=== PATIENT | male | born 1970 | race Caucasian/White ===

== ENCOUNTER → 2017-02-24 | Outpatient (CLI) | payer OTHER, MEDICAID ==
[2016-06-27 10:55] VITALS: BP 149/95
--- NOTE | 2017-02-24 11:46 | RAD ---
HISTORY: Nontraumatic left shoulder pain and numbness Study: Left shoulder three view Comparison: None Findings: The appearance of the clavicle and AC joint are unremarkable. The glenohumeral articulation is norm al in its appearance. No acute cortical disruption or dislocation can be identified. The visualize d portions of the scapula are unremarkable. In addition, the visualized portions of the left hemith orax appear normal. IMPRESSION: 1. Negative exam. Reported By:
--- NOTE | 2017-02-24 11:48 | RAD ---
HISTORY: Neck pain, radiculopathy Study: Cervical spine five view Comparison: February 25, 2016 Findings: The patient is status post C3-4, C4-5, C5-6, C6-7 anterior fusion with hardware and disc spacers pre sent the alignment is normal. The alignment is stable in flexion and extension. The vertebral bodies are of average height. The C2-3 disc space is preserved. The posterior elements are intact. Diffuse bilateral facet degenerative joint disease is present. IMPRESSION: Postsurgical changes as above Normal alignment stable in flexion and extension Facet degenerative joint disease Reported By:
--- NOTE | 2017-02-25 13:14 | MRI ---
HISTORY: Cervicalgia, radiculopathy Study: MRI cervical spine without con Comparison: April 01, 2016 Technique: Multiplanar multisequence MRI of the cervical spine was obtained utilizing standard depar tmental protocol. Findings: The patient is status post C3 through C7 anterior fusion with hardware present . There is disk space r at C3-4. Alignment of the cervical spine is maintained. No abnormal signal characteristics of the bone marrow can be identified. No evidence for fracture or significant bone or edema can be seen. The surrounding soft tissues are unremarkable. The cervical spinal cord is normal in size and conf iguration and without foci of abnormal signal. C2 -- C3: No evidence for compressive disc disease. The neural foramina are patent. C3 -- C4: Status post fusion mild spondylitic foraminal narrowing is present on the right and to a l kenrick extent on the left. C4 -- C5: Status post fusion. There is spondylitic foraminal narrowing bilaterally. No canal stenosi s is present. C5 -- C6: Status post fusion. No significant canal stenosis is present. Spondylitic foraminal narrow ing is present bilaterally. C6 -- C7: Status post fusion no significant canal stenosis is present peer spondylitic foraminal johnny rowing is present bilaterally right greater than left C7 -- T1: No evidence for compressive disc disease. The neural foramina are patent. IMPRESSION: As above Reported By:
--- NOTE | 2017-02-25 16:21 | CT ---
STUDY: CT OF THE CERVICAL SPINE HISTORY: Cervicalgia. Radiculopathy. Technique: Multiple axial images of the cervical spine were obtained from the skull base to the thor acic inlet without administration of IV contrast. Sagittal and coronal reformats were performed and reviewed. Automated exposure control (AEC) was utilized to adjust the MA and/or kV. Comparison: March 27, 2016. Findings: There are extensive postsurgical changes status post multilevel discectomy with placement of interbo dy cage and anterior plate screw fixation from C3 to C7. There is no evidence of acute fracture or subluxation. Facet alignment is within normal limits bilaterally. The spinous processes are intact. There is no significant prevertebral soft tissue swelling. The lateral masses of C1, and the C1/C2 r elationship are normal. The odontoid process is intact. The occipital condyles and their relationshi p with C1 are normal. Note is made of emphysematous changes in the right lung apex. IMPRESSION: 1. No evidence of acute cervical spine fracture or subluxation. 2. Postsurgical change status post multilevel discectomy with fusion and plate and screw fixation fr om C3-C7. Reported By:
== END | disposition home or self-care (01) ==
LOC: RAD 10:01
PROVIDERS: ATTEND Neurological Surgery
DX: M54.2 Cervicalgia (principal); M54.12 Radiculopathy, cervical region; M25.512 Pain in left shoulder; Z98.890 Other specified postprocedural states; M47.892 Other spondylosis, cervical region; Z98.1 Arthrodesis status
CPT/HCPCS: 72050; 72125; 72141; 73030

== ENCOUNTER 2017-03-06 20:44 | Emergency (ER) | payer OTHER, MEDICAID ==
[2017-03-06 20:58] VITALS: BP 154/80; BMI 26.2
[2017-03-06 22:53] LABS: BILIRUBIN,URINE NEGATIVE (NEGATIVE); BLOOD/HEMOGLOBIN,URINE 5+ (NEGATIVE); GLUCOSE, URINE 2+ (NEGATIVE); KETONES,URINE NEGATIVE (NEGATIVE); LEUKOCYTE ESTERASE ,URINE NEGATIVE (NEGATIVE); NITRITES,URINE NEGATIVE (NEGATIVE); PROTEIN,URINE NEGATIVE (NEGATIVE); UROBILINOGEN,URINE NORMAL (NORMAL)
--- NOTE | 2017-03-06 23:04 | DR.GENAD ---
HPI - PCP Primary Care Physician: - Complaint/Symptoms Chief Complaint:: PT STATERS, "i'M HAVING PAIN IN MY SIDE. I'VE BEEN HURTING FOR A WEEK AND HAVING BLOOD IN MY URINE." Self Treatment fo Chief Complaint: Pt states, "I took a hot shower. And I weent and bought a six pack." - Nurses notes reviewed Nurses Notes Review: Yes - Source History Provided: Patient - Mode of Arrival Mode of Arrival: Ambulatory - Timing Onset of Chief Complaint: 02/26/17 PMH - PMH Past Medical History: Yes Past Medical History: GERD, Kidney Stones Past Surgical History: Yes Surgical History: Ortho Surgery Past Surgical History Comment: shoulder, neck surgery - Family History History of Family Medical Conditions: Yes Family Medical History: Cancer, Hypertension Family Medical History Comment: CVA - Social History Does patient currently use any type of tobacco product: Yes Have you used tobacco products in the last 12 months: Yes Type of Tobacco Use: Cigarettes Alcohol Use: Rarely Do you use any recreational Drugs:: No Lives With: Spouse Lives Where: Home - infectious screening In the last 2 months have you had wt loss of >10#?: NO Have you had fever, night sweats or hemotysis?: No Have you traveled outside the country in the last 6 months?: No Isolation: Standard PE - Vital Signs Vitals: Temperature 97.9 F Pulse Rate 98 Respiratory Rate 18 Blood Pressure 154/80 O2 Sat by Pulse Oximetry 99 ROR - Labs Reviewed Laboratory: Specimen Type Clean catch urine 03/06/17 22:00 Urine Color Yellow (YELLOW) 03/06/17 22:00 Urine Appearance Slightly hazy (CLEAR) 03/06/17 22:00 Urine pH 6.0 (5.0 - 8.0) 03/06/17 22:00 Ur Specific [place] 1.010 (1.000-1.030) 03/06/17 22:00 Urine Protein Negative (NEGATIVE) 03/06/17 22:00 Urine Glucose (UA) 2+ (NEGATIVE) 03/06/17 22:00 Urine Ketones Negative (NEGATIVE) 03/06/17 22:00 Urine Occult Blood 5+ (NEGATIVE) 03/06/17 22:00 Urine Nitrite Negative (NEGATIVE) 03/06/17 22:00 Urine Bilirubin Negative (NEGATIVE) 03/06/17 22:00 Urine Urobilinogen Normal (NORMAL) 03/06/17 22:00 Ur Leukocyte Esterase Negative (NEGATIVE) 03/06/17 22:00 Urine RBC 80-100 /HPF (NEGATIVE) 03/06/17 22:00 Urine WBC 0-3 /HPF (NEGATIVE) 03/06/17 22:00 Ur Squamous Epith Cells Rare /HPF (NEGATIVE) 03/06/17 22:00 Urine Bacteria Negative /HPF (NEGATIVE) 03/06/17 22:00 Ur Culture Indicated? No/not indicated 03/06/17 22:00 - Discharge Plan Disposition: AGAINST MEDICAL ADVICE Condition: Stable - Follow ups/Referrals Follow ups/Referrals: NFD,None [Primary Care Provider] - 3 days - Instructions
[2017-03-06 23:12] LABS: APPEARANCE,URINE SLIGHTLY HAZY (CLEAR); BACTERIA,URINE NEGATIVE /HPF (NEGATIVE); COLOR,URINE YELLOW (YELLOW); RBC,URINE 80-100 /HPF (NEGATIVE); SQUAMOUS EPITHELIAL CELL,UR RARE /HPF (NEGATIVE)
== END 2017-03-06 23:11 | disposition left against medical advice (07) ==
LOC: ER 20:44
DX: R10.84 Generalized abdominal pain (principal)
CPT/HCPCS: 81001; 99281; 99282

== ENCOUNTER 2017-05-20 20:10 | Inpatient (IN) | payer OTHER, MEDICAID ==
[2017-05-20 20:18] VITALS: BMI 26.3
[2017-05-20] MEDS ORDERED: NS 1000 ML 1,000 ML ONE ×3 (20:22→22:17)
[2017-05-20] MEDS ORDERED: NS 1000 ML 1,000 ML IV ONE ×3 (20:23→22:24)
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
[2017-05-20 20:43] LABS: BASOPHILS # (AUTO) 0.1 X10^3/uL (0.0-0.1); EOSINOPHILS # (AUTO) 0.2 x10^3/uL (0.0-0.2); EOSINOPHILS % (AUTO) 2.3 % (0.9-2.9); HEMATOCRIT 38.1 % (42.0-54.0); HEMOGLOBIN 13.1 g/dL (13.5-18.0); LYMPHOCYTES # (AUTO) 2.4 X10^3/uL (1.3-2.9); MEAN CORPUSCULAR HEMOGLOBIN 29.7 pg (27.0-34.0); MEAN CORPUSCULAR HGB CONC 34.3 g/dL (33.0-35.0); MEAN CORPUSCULAR VOLUME 86.6 fL (80.0-100.0); MEAN PLATELET VOLUME 9.1 fL (7.4-11.0); MONOCYTES # (AUTO) 0.8 x10^3/uL (0.3-0.8); MONOCYTES % (AUTO) 10.7 % (0.0-13.0); NEUTROPHILS # (AUTO) 3.7 x10^3/uL (2.2-4.8); PLATELET COUNT 342 X10^3/uL (150.0-450.0); RED CELL DISTRIBUTION WIDTH 14.9 % (11.6-16.5)
[2017-05-20 20:51] LABS: ALANINE AMINOTRANSFERASE 43 Units/L (12-78); ALBUMIN 4.3 g/dL (3.4-5.0); ALKALINE PHOSPHATASE 60 Units/L (46-116); ASPARTATE AMINO TRANSFERASE 39 Units/L (15-37); BLOOD UREA NITROGEN 55 mg/dL (7-18); CALCIUM 9.7 mg/dL (8.5-10.1); CARBON DIOXIDE 18.5 mmol/L (21-32); CHLORIDE 100 mmol/L (98-107); COR NA(FOR HYPERGLY) 136 mmol/L (136-145); CREATININE 8.49 mg/dL (0.70-1.30); SODIUM 135 mmol/L (136-145); TOTAL PROTEIN 8.5 g/dL (6.4-8.2); eGFR BLACK RACES 9 (>60); eGFR NON BLACK RACES 7 (>60)
--- NOTE | 2017-05-20 21:17 | RAD ---
EXAM: Chest X-ray INDICATION: Low blood pressure COMPARISION: No prior TECHNIQUE: AP, single view FINDINGS: The lungs are clear in the lung volumes are within normal limits. No pleural effusion or pneumothorax . The cardiac silhouette and mediastinum are normal. The regional skeleton is intact. IMPRESSION: Normal Chest X-Ray Reported By:
[2017-05-20 23:18] LABS: BILIRUBIN,URINE 1+ (NEGATIVE); BLOOD/HEMOGLOBIN,URINE 4+ (NEGATIVE); GLUCOSE, URINE NEGATIVE (NEGATIVE); KETONES,URINE NEGATIVE (NEGATIVE); LEUKOCYTE ESTERASE ,URINE 1+ (NEGATIVE); NITRITES,URINE NEGATIVE (NEGATIVE); PROTEIN,URINE 3+ (NEGATIVE); UROBILINOGEN,URINE NORMAL (NORMAL)
[2017-05-20 23:23] LABS: CALCIUM 8.1 mg/dL (8.5-10.1); CARBON DIOXIDE 21.5 mmol/L (21-32); CREATININE 7.38 mg/dL (0.70-1.30)
[2017-05-20 23:25] LABS: APPEARANCE,URINE CLEAR (CLEAR); COLOR,URINE YELLOW (YELLOW); RBC,URINE 0-3 /HPF (NEGATIVE)
[2017-05-20 23:26] LABS: BACTERIA,URINE 1+ /HPF (NEGATIVE); HYALINE CASTS, URINE MANY /LPF (NEGATIVE); SQUAMOUS EPITHELIAL CELL,UR RARE /HPF (NEGATIVE)
[2017-05-20 23:27] LABS: OTHER CRYSTALS,URINE MODERATE /HPF (NEGATIVE)
[2017-05-21] MEDS: NS 1000 ML 1,000 ML IV SCH ×5 (01:04→23:33)
[2017-05-21 05:43] LABS: BASOPHILS % (AUTO) 0.7 % (0.2-1.0); EOSINOPHILS # (AUTO) 0.2 x10^3/uL (0.0-0.2); HEMATOCRIT 35.1 % (42.0-54.0); HEMOGLOBIN 11.7 g/dL (13.5-18.0); LYMPHOCYTES # (AUTO) 2.6 X10^3/uL (1.3-2.9); LYMPHOCYTES % (AUTO) 42.9 % (21.0-51.0); MEAN CORPUSCULAR HEMOGLOBIN 29.6 pg (27.0-34.0); MEAN CORPUSCULAR HGB CONC 33.4 g/dL (33.0-35.0); MEAN CORPUSCULAR VOLUME 88.6 fL (80.0-100.0); MEAN PLATELET VOLUME 9.1 fL (7.4-11.0); MONOCYTES # (AUTO) 0.7 x10^3/uL (0.3-0.8); MONOCYTES % (AUTO) 10.9 % (0.0-13.0); NEUTROPHILS # (AUTO) 2.6 x10^3/uL (2.2-4.8); NEUTROPHILS % (AUTO) 42.5 % (42.0-75.0); PLATELET COUNT 237 X10^3/uL (150.0-450.0); RED BLOOD COUNT 3.97 X10^6/uL (4.7-6.0); RED CELL DISTRIBUTION WIDTH 14.9 % (11.6-16.5)
[2017-05-21 05:56] LABS: ALANINE AMINOTRANSFERASE 33 Units/L (12-78); ALBUMIN 3.2 g/dL (3.4-5.0); ALKALINE PHOSPHATASE 45 Units/L (46-116); ASPARTATE AMINO TRANSFERASE 33 Units/L (15-37); BLOOD UREA NITROGEN 50 mg/dL (7-18); CALCIUM 8.1 mg/dL (8.5-10.1); CARBON DIOXIDE 18.7 mmol/L (21-32); CHLORIDE 108 mmol/L (98-107); COR CA(FOR HYPOALB) 8.7 mg/dL (8.5-10.1); CREATININE 6.67 mg/dL (0.70-1.30); SODIUM 139 mmol/L (136-145); TOTAL PROTEIN 6.6 g/dL (6.4-8.2); eGFR BLACK RACES 11 (>60); eGFR NON BLACK RACES 9 (>60)
[2017-05-21] MEDS ORDERED: PATIENT'S HOME MEDICATION (Lisinopril [Lisinopril] 20 MG) PO SCH (09:00)
[2017-05-21] MEDS ORDERED: PATIENT'S HOME MEDICATION (Amlodipine Besylate [Amlodipine Besylate] 10 MG) PO SCH (09:00)
[2017-05-21] MEDS ORDERED: ZESTRIL TAB 20 MG ONE (09:24)
[2017-05-21] MEDS: NORVASC TAB 10 MG PO SCH (09:26)
[2017-05-21] MEDS: ZESTRIL TAB 20 MG PO SCH (09:26)
[2017-05-21] MEDS ORDERED: NS 1000 ML 2,000 ML IV ONE (11:48)
[2017-05-21] MEDS ORDERED: ULTRAM PO PRN (14:34)
[2017-05-21] MEDS: NORCO 10/325 TAB PO PRN ×2 (15:06→21:15)
[2017-05-21] MEDS: PEPCID TAB 20 MG PO SCH ×2 (16:26→21:10)
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
[2017-05-22] MEDS: NS 1000 ML 1,000 ML IV SCH ×3 (03:52→16:58)
[2017-05-22] MEDS: NORCO 10/325 TAB PO PRN ×3 (03:55→20:21)
[2017-05-22 05:26] LABS: EOSINOPHILS # (AUTO) 0.3 x10^3/uL (0.0-0.2); EOSINOPHILS % (AUTO) 5.6 % (0.9-2.9); HEMATOCRIT 31.2 % (42.0-54.0); HEMOGLOBIN 10.4 g/dL (13.5-18.0); LYMPHOCYTES # (AUTO) 2.5 X10^3/uL (1.3-2.9); LYMPHOCYTES % (AUTO) 50.6 % (21.0-51.0); MEAN CORPUSCULAR HEMOGLOBIN 29.5 pg (27.0-34.0); MEAN CORPUSCULAR HGB CONC 33.3 g/dL (33.0-35.0); MEAN CORPUSCULAR VOLUME 88.5 fL (80.0-100.0); MEAN PLATELET VOLUME 9.1 fL (7.4-11.0); MONOCYTES # (AUTO) 0.4 x10^3/uL (0.3-0.8); MONOCYTES % (AUTO) 8.5 % (0.0-13.0); NEUTROPHILS # (AUTO) 1.7 x10^3/uL (2.2-4.8); NEUTROPHILS % (AUTO) 34.3 % (42.0-75.0); PLATELET COUNT 230 X10^3/uL (150.0-450.0); RED BLOOD COUNT 3.52 X10^6/uL (4.7-6.0); RED CELL DISTRIBUTION WIDTH 14.7 % (11.6-16.5)
[2017-05-22 05:29] LABS: ALANINE AMINOTRANSFERASE 30 Units/L (12-78); ALBUMIN 2.8 g/dL (3.4-5.0); ALKALINE PHOSPHATASE 45 Units/L (46-116); ASPARTATE AMINO TRANSFERASE 24 Units/L (15-37); BLOOD UREA NITROGEN 26 mg/dL (7-18); CALCIUM 7.5 mg/dL (8.5-10.1); CARBON DIOXIDE 17.4 mmol/L (21-32); CHLORIDE 114 mmol/L (98-107); COR CA(FOR HYPOALB) 8.5 mg/dL (8.5-10.1); CREATINE KINASE 206 Units/L (39-308); CREATININE 2.08 mg/dL (0.70-1.30); SODIUM 143 mmol/L (136-145); TOTAL PROTEIN 5.7 g/dL (6.4-8.2); eGFR BLACK RACES 44 (>60); eGFR NON BLACK RACES 36 (>60)
[2017-05-22] MEDS ORDERED: ZESTRIL TAB 20 MG ONE (09:12)
[2017-05-22] MEDS: ZESTRIL TAB 20 MG PO SCH (09:19)
[2017-05-22] MEDS: PEPCID TAB 20 MG PO SCH (09:19)
[2017-05-22] MEDS: NORVASC TAB 10 MG PO SCH (09:19)
[2017-05-23] MEDS: NS 1000 ML 1,000 ML IV SCH ×3 (01:54→08:52)
[2017-05-23 04:28] LABS: BASOPHILS # (AUTO) 0.1 X10^3/uL (0.0-0.1); EOSINOPHILS # (AUTO) 0.3 x10^3/uL (0.0-0.2); EOSINOPHILS % (AUTO) 5.4 % (0.9-2.9); HEMATOCRIT 31.2 % (42.0-54.0); HEMOGLOBIN 10.6 g/dL (13.5-18.0); LYMPHOCYTES # (AUTO) 2.4 X10^3/uL (1.3-2.9); MEAN CORPUSCULAR HEMOGLOBIN 29.5 pg (27.0-34.0); MEAN CORPUSCULAR HGB CONC 33.8 g/dL (33.0-35.0); MEAN CORPUSCULAR VOLUME 87.2 fL (80.0-100.0); MONOCYTES # (AUTO) 0.4 x10^3/uL (0.3-0.8); MONOCYTES % (AUTO) 7.2 % (0.0-13.0); NEUTROPHILS # (AUTO) 2.2 x10^3/uL (2.2-4.8); NEUTROPHILS % (AUTO) 41.4 % (42.0-75.0); PLATELET COUNT 240 X10^3/uL (150.0-450.0); RED BLOOD COUNT 3.58 X10^6/uL (4.7-6.0); RED CELL DISTRIBUTION WIDTH 14.3 % (11.6-16.5); WHITE BLOOD COUNT 5.3 X10^3/uL (3.6-10.0)
[2017-05-23 04:32] LABS: ALANINE AMINOTRANSFERASE 26 Units/L (12-78); ALBUMIN 2.7 g/dL (3.4-5.0); ALKALINE PHOSPHATASE 41 Units/L (46-116); ASPARTATE AMINO TRANSFERASE 25 Units/L (15-37); BLOOD UREA NITROGEN 14 mg/dL (7-18); CALCIUM 7.3 mg/dL (8.5-10.1); CARBON DIOXIDE 21.4 mmol/L (21-32); CHLORIDE 113 mmol/L (98-107); COR CA(FOR HYPOALB) 8.3 mg/dL (8.5-10.1); CREATINE KINASE 148 Units/L (39-308); CREATININE 1.45 mg/dL (0.70-1.30); SODIUM 143 mmol/L (136-145); TOTAL PROTEIN 5.7 g/dL (6.4-8.2); eGFR BLACK RACES > 60 (>60); eGFR NON BLACK RACES 55 (>60)
[2017-05-23] MEDS: NORCO 10/325 TAB PO PRN ×2 (06:56→08:51)
[2017-05-23] MEDS ORDERED: ZESTRIL TAB 20 MG ONE (07:54)
[2017-05-23 08:51] VITALS: BP 166/83
[2017-05-23] MEDS: NORVASC TAB 10 MG PO SCH (08:51)
[2017-05-23] MEDS: ZESTRIL TAB 20 MG PO SCH (08:52)
[2017-05-23] MEDS ORDERED: PEPCID TAB 20 MG PO SCH (09:00)
--- NOTE | 2017-05-23 23:39 | PCM.PROG ---
Progress Note - Progress Note for Day of Date: 05/22/17 - Subjective Subjective: WAS ADMITTED FOR PRERENAL AZOTEMIA AND DEHYDRATION. HE IS ALERT AND ORIENTED, LYING IN BED ON MORNING ROUNDS. HE IS NOTED WITH COMPLAINTS OF WEAKNESS. HE REPORTS FEELING SOME BETTER THAN YESTERDAY. ON EXAMINATION, LUNGS ARE NOTED CLEAR TO AUSCULTATION. ABDOMEN IS SOFT, ROUND, AND NON TENDER. VITALS SIGNS THIS MORNING ARE 98.2-30-10-99-134/75. CBC, CMP, AND CK WERE OBTAINED. ABNORMAL LAB VALUES INCLUDE THE FOLLOWING: RBC 3.52, HGB 10.4, HCT 31.2, CHLORIDE 114, CARBON DIOXIDE 17.4, BUN 26, CREATININE 2.08, CALCIUM 7.5, TOTAL BILIRUBIN 0.10, ALK PHOS 45, CREATINE KINASE 206, TOTAL PROTEIN 5.7, ALBUMIN 2.8. WE WILL CONTINUE WITH CURRENT PLAN OF CARE AND CONTINUE HYDRATING PATIENT. WE WILL RECHECK CBC, CMP, AND CK IN THE MORNING AND CONTINUE TO MONITOR PATIENT. WE PLAN TO DISCHARGE TOMORROW IF KIDNEY FUNCTION HAS RETURNED TO NORMAL AND PATIENT IS IN STABLE CONDITION. - Past Medical Family Social History Past Med/Fam/Surg Hx: No changes since H&P Allergies: Allergies cephalexin [From Keflex] Allergy (Intermediate, Verified 05/21/17 04:14) - Review of Systems ROS: No change since H&P - Vital Signs and I&O's Vital Signs: Temperature 98.3 F Pulse Rate [Right Brachial] 86 Pulse Rate 89 Respiratory Rate 20 Blood Pressure [Right Arm] 166/83 Blood Pressure 79/54 O2 Sat by Pulse Oximetry 99 Intake and Output: Intake & Output 05/21/17 05/22/17 05/23/17 05/24/17 11:59 11:59 11:59 11:59 Intake Total 4032 11050 1664 Output Total 350 1410 0006 Balance 8535 7330 7933 - Physical Exam Oriented: Normal Eyes: Normal Ear: Normal Nose: Normal Throat: Normal Respiratory: Normal Cardiovascular: Normal : Normal Auscultation: Bowel Sounds: Normal Palpation: Normal Tenderness: Normal Skin: Normal Musculoskeletal: Normal Psychiatric: Normal Mood Description: Calm Affect: Normal Speech Pattern: Clear, Appropriate - Laboratory and Diagnostics Result Diagrams: 05/23/17 03:45 05/23/17 03:45 Labs: 05/20/17 23:08 Urine,Clean Catch Urine Culture - Final Laboratory WBC 5.3 X10^3/uL (3.6-10.0) 05/23/17 03:45 RBC 3.58 X10^6/uL (4.7-6.0) L 05/23/17 03:45 Hgb 10.6 g/dL (13.5-18.0) L 05/23/17 03:45 Hct 31.2 % (42.0-54.0) L 05/23/17 03:45 MCV 87.2 fL (80.0-100.0) 05/23/17 03:45 MCH 29.5 pg (27.0-34.0) 05/23/17 03:45 MCHC 33.8 g/dL (33.0-35.0) 05/23/17 03:45 RDW 14.3 % (11.6-16.5) 05/23/17 03:45 Plt Count 240 X10^3/uL (150.0-450.0) 05/23/17 03:45 MPV 9.0 fL (7.4-11.0) 05/23/17 03:45 Neut % 41.4 % (42.0-75.0) L 05/23/17 03:45 Lymph % 45.0 % (21.0-51.0) 05/23/17 03:45 [place] % 7.2 % (0.0-13.0) 05/23/17 03:45 Eos % 5.4 % (0.9-2.9) H 05/23/17 03:45 Baso % 1.0 % (0.2-1.0) 05/23/17 03:45 Neut # 2.2 x10^3/uL (2.2-4.8) 05/23/17 03:45 Lymph # 2.4 X10^3/uL (1.3-2.9) 05/23/17 03:45 [place] # 0.4 x10^3/uL (0.3-0.8) 05/23/17 03:45 Eos # 0.3 x10^3/uL (0.0-0.2) H 05/23/17 03:45 Baso # 0.1 X10^3/uL (0.0-0.1) 05/23/17 03:45 Absolute Nucleated RBC 0.0 /100WBC 05/23/17 03:45 Sodium 143 mmol/L (136-145) 05/23/17 03:45 Corrected Sodium TNP 05/23/17 03:45 Potassium 4.8 mmol/L (3.5-5.1) 05/23/17 03:45 Chloride 113 mmol/L (98-107) H 05/23/17 03:45 Carbon Dioxide 21.4 mmol/L (21-32) 05/23/17 03:45 BUN 14 mg/dL (7-18) 05/23/17 03:45 Creatinine 1.45 mg/dL (0.70-1.30) H 05/23/17 03:45 Est GFR (MDRD) Af Amer > 60 (>60) 05/23/17 03:45 Est GFR (MDRD) Non-Af 55 (>60) L 05/23/17 03:45 Glucose 81 mg/dL (65-99) 05/23/17 03:45 Calcium 7.3 mg/dL (8.5-10.1) L 05/23/17 03:45 Corrected Calcium 8.3 mg/dL (8.5-10.1) L 05/23/17 03:45 Total Bilirubin 0.20 mg/dL (0.2-1.0) 05/23/17 03:45 AST 25 Units/L (15-37) 05/23/17 03:45 ALT 26 Units/L (12-78) 05/23/17 03:45 Alkaline Phosphatase 41 Units/L (46-116) L 05/23/17 03:45 Creatine Kinase 148 Units/L (39-308) 05/23/17 03:45 Total Protein 5.7 g/dL (6.4-8.2) L 05/23/17 03:45 Albumin 2.7 g/dL (3.4-5.0) L 05/23/17 03:45 Globulin 3.0 g/dL (2.5-4.5) 05/23/17 03:45 Albumin/Globulin Ratio 0.9 Ratio (1.1-2.1) L 05/23/17 03:45 Specimen Type Clean catch urine 05/20/17 23:08 Urine Color Yellow (YELLOW) 05/20/17 23:08 Urine Appearance Clear (CLEAR) 05/20/17 23:08 Urine pH 5.0 (5.0 - 8.0) 05/20/17 23:08 Ur Specific [place] 1.020 (1.000-1.030) 05/20/17 23:08 Urine Protein 3+ (NEGATIVE) 05/20/17 23:08 Urine Glucose (UA) Negative (NEGATIVE) 05/20/17 23:08 Urine Ketones Negative (NEGATIVE) 05/20/17 23:08 Urine Occult Blood 4+ (NEGATIVE) 05/20/17 23:08 Urine Nitrite Negative (NEGATIVE) 05/20/17 23:08 Urine Bilirubin 1+ (NEGATIVE) 05/20/17 23:08 Urine Urobilinogen Normal (NORMAL) 05/20/17 23:08 Ur Leukocyte Esterase 1+ (NEGATIVE) 05/20/17 23:08 Urine RBC 0-3 /HPF (NEGATIVE) 05/20/17 23:08 Urine WBC 6-8 /HPF (NEGATIVE) 05/20/17 23:08 Ur Squamous Epith Cells Rare /HPF (NEGATIVE) 05/20/17 23:08 Other Crystals Moderate /HPF (NEGATIVE) 05/20/17 23:08 Urine Bacteria 1+ /HPF (NEGATIVE) 05/20/17 23:08 Hyaline Casts Many /LPF (NEGATIVE) 05/20/17 23:08 Ur Culture Indicated? Yes/culture set up 05/20/17 23:08 - Plan (1) Prerenal renal failure Status: Acute Plan: NORMAL SALINE BOLUS X 2, THEN NS AT 250ML/HR, CONTINUE TO MONITOR
== END 2017-05-23 10:20 | disposition home or self-care (01) | DRG 641 ==
LOC: ER 20:22 → ICU 05-21 00:12 → MED/SURG 05-21 15:35
PROVIDERS: ADMIT Internal Medicine; ATTEND Internal Medicine
DX: E86.0 Dehydration (principal); R79.89 Other specified abnormal findings of blood chemistry; R55 Syncope and collapse; K21.9 Gastro-esophageal reflux disease without esophagitis; N19 Unspecified kidney failure; R53.1 Weakness; R51 Headache; R94.4 Abnormal results of kidney function studies; R73.09 Other abnormal glucose
CPT/HCPCS: 36415; 71010; 80048; 80053; 81001; 82550; 85025; 87086; 96365; 96367; 99284; A4216; A4222

== ENCOUNTER 2017-10-23 19:52 | Emergency (ER) | payer OTHER, MEDICAID ==
[2017-10-23 20:00] VITALS: BMI 26.4
[2017-10-23] MEDS ORDERED: TORADOL 30 MG VIAL IVP ONE (20:22)
[2017-10-23] MEDS ORDERED: TORADOL 30 MG VIAL ONE (20:23)
[2017-10-23] MEDS ORDERED: NS 1000 ML 1,000 ML ONE (20:23)
--- NOTE | 2017-10-23 20:25 | DR.GENAD ---
HPI - PCP Primary Care Physician: melyssa - Complaint/Symptoms Chief Complaint Doctors Comments: I have read chief complaint and agree with statement Chief Complaint:: Patient states he has been to his primary care physician twice for kidney stones in the past two weeks. Xrays were taken and reported that he had kidney stones bilaterally. Patient reports pain is severe and is unable to tolerate pain at home. Patient has taken Hydrocodone 10/325mg PO QID prn with little relief. Patient reports left back pain, bilateral pelvic pain, and left testicular pain. - Source History Provided: Patient - Mode of Arrival Mode of Arrival: Ambulatory - Timing Onset of Chief Complaint: 10/09/17 PMH - PMH Past Medical History: Yes Past Medical History: GERD, Hypertension, Kidney Stones, Renal Disease Past Surgical History: Yes Surgical History: Ortho Surgery, Lithotripsy - Family History History of Family Medical Conditions: Yes Family Medical History: Cancer, Hypertension - Social History Type of Tobacco Use: Cigarettes Alcohol Use: None Do you use any recreational Drugs:: No Lives With: Family Lives Where: Home - infectious screening In the last 2 months have you had wt loss of >10#?: NO Have you had fever, night sweats or hemotysis?: No Have you traveled outside the country in the last 6 months?: No Isolation: Standard ROS - Review of Systems Eyes: No Symptoms Reported ENTM: No Symptoms Reported Respiratoy: No Symptoms Reported Cardiovascular: No Symptoms Reported Gastrointestinal/Abdominal: No Symptoms Reported Genitourinary: No Symptoms Reported Neurological: No Symptoms Reported Musculoskeletal: No Symptoms Reported Integumentary: No Symptoms Reported Hematologic/Lymphatic: No Symptoms Reported Endocrine: No Symptoms Reported Psychiatric: No Symptoms Reported All Other Systems: Reviewed and Negative PE - Vital Signs Vitals: Temperature 99.2 F Pulse Rate 98 Respiratory Rate 20 Blood Pressure [Right Arm] 166/83 Blood Pressure 140/89 O2 Sat by Pulse Oximetry 86 - General Limitations: No Limitations General Appearance: Alert, In No Apparent Distress - Head Head Exam: Normal Inspection, Atraumatic - Eyes Eye exam: Normal Appearance, PERRL, EOMI - ENT ENT Exam: Normal Exam External Ear Exam: Normal External Inspection TM/Canal Exam: Bilateral Normal Nose Exam: Normal Nose Exam Mouth Exam: Normal Inspection Throat Exam: Normal Inspection - Neck Neck Exam: Normal Inspection, Full ROM - Chest Chest Inspection: Normal Inspection - Respiratory Respiratory Exam: Normal Lung Sounds Bilat Respiratory Exam: Bilateral Clear to Auscultation - Cardiovascular Cardiovascular Exam: Regular Rate, Normal Rhythm - Abdominal Exam Abdominal Exam: Normal Inspection, Normal Bowel Sounds Abdominal Tenderness: RUQ, RLQ, LUQ, LLQ - Extremities Extremities Exam: Normal Inspection, Full ROM - Back Back Exam: Normal Inspection - Neurologic Neurological Exam: Alert, Oriented X3, CN II-XII Intact - Psychiatric Psychiatric Exam: Normal Affect - Skin Skin Exam: Warm, Dry, Intact Course - Reevaluation 1st: Improved - Education/Counseling Educated On: Treatment, Diagnosis, Prognosis, Needs for Follow Up ROR - Labs Reviewed Laboratory: Specimen Type Clean catch urine 10/23/17 20:24 Urine Color Yellow (YELLOW) 10/23/17 20:24 Urine Appearance Clear (CLEAR) 10/23/17 20:24 Urine pH 6.0 (5.0 - 8.0) 10/23/17 20:24 Ur Specific [place] 1.010 (1.000-1.030) 10/23/17 20:24 Urine Protein Negative (NEGATIVE) 10/23/17 20:24 Urine Glucose (UA) Negative (NEGATIVE) 10/23/17 20:24 Urine Ketones Negative (NEGATIVE) 10/23/17 20:24 Urine Occult Blood 2+ (NEGATIVE) 10/23/17 20:24 Urine Nitrite Negative (NEGATIVE) 10/23/17 20:24 Urine Bilirubin Negative (NEGATIVE) 10/23/17 20:24 Urine Urobilinogen Normal (NORMAL) 10/23/17 20:24 Ur Leukocyte Esterase Negative (NEGATIVE) 10/23/17 20:24 Urine RBC Rare /HPF (NEGATIVE) 10/23/17 20:24 Urine WBC None seen /HPF (NEGATIVE) 10/23/17 20:24 Ur Squamous Epith Cells Rare /HPF (NEGATIVE) 10/23/17 20:24 Urine Bacteria Negative /HPF (NEGATIVE) 10/23/17 20:24 Ur Culture Indicated? No/not indicated 10/23/17 20:24 - XRAY XRAY Interpreted by: Radiologist (CT Abd/Pel w/o: Small nonobstructive left renal calculi measuring 3-4mm. Otherwise unremarkable bilateral kidneys.) - Diagnosis Discharge Problem: Renal calculus, left - Discharge Plan Condition: Stable - Follow ups/Referrals Follow ups/Referrals: NAEL SPENCER [Primary Care Provider] - 3 days - Instructions
[2017-10-23 20:32] LABS: BILIRUBIN,URINE NEGATIVE (NEGATIVE); BLOOD/HEMOGLOBIN,URINE 2+ (NEGATIVE); GLUCOSE, URINE NEGATIVE (NEGATIVE); KETONES,URINE NEGATIVE (NEGATIVE); LEUKOCYTE ESTERASE ,URINE NEGATIVE (NEGATIVE); NITRITES,URINE NEGATIVE (NEGATIVE); PROTEIN,URINE NEGATIVE (NEGATIVE); UROBILINOGEN,URINE NORMAL (NORMAL)
--- NOTE | 2017-10-23 20:53 | CT ---
CT ABDOMEN PELVIS WITHOUT CONTRAST CLINICAL HISTORY: Abdominal pain TECHNIQUE: Axial images of the abdomen pelvis were obtained without administration of intravenous con trast material. COMPARISON: None FINDINGS: Included lung bases are grossly unremarkable. CT ABDOMEN: Uniform attenuation of the hepatic parenchyma without evidence of focal lesions. Unremarkable gallbladder, spleen, pancreas, bilateral adrenal glands. Small nonobstructive left renal calculi measuring 3-4 mm. Otherwise unremarkable bilateral kidneys. Normal caliber small bowel and colonic loops with no evidence of wall thickening. No evidence of free fluid or adenopathy in the abdomen. CT PELVIS: Unremarkable urinary bladder. No free pelvic fluid or pelvic adenopathy. Osseous structures demonstrate no suspicious sclerotic or lytic lesions. IMPRESSION: No definite evidence of acute inflammatory/infectious process identified in the abdomen/pelvis. Reported By:
[2017-10-23 20:58] LABS: APPEARANCE,URINE CLEAR (CLEAR); BACTERIA,URINE NEGATIVE /HPF (NEGATIVE); COLOR,URINE YELLOW (YELLOW); RBC,URINE RARE /HPF (NEGATIVE); SQUAMOUS EPITHELIAL CELL,UR RARE /HPF (NEGATIVE)
[2017-10-23] MEDS ORDERED: NS 1000 ML 1,000 ML IV SCH (21:00)
[2017-10-23] MEDS ORDERED: TORADOL TAB PO ONE ×2 (21:28)
[2017-10-23 21:36] VITALS: BP 137/85
== END 2017-10-23 21:36 | disposition home or self-care (01) ==
LOC: ER 19:52
DX: N20.0 Calculus of kidney (principal)
CPT/HCPCS: 74176; 81001; 96365; 96367; 96374; 99283; A4222; J1885

== ENCOUNTER 2018-01-15 22:28 | Emergency (ER) | payer OTHER, MEDICAID ==
[2018-01-15 22:47] VITALS: BP 124/78; BMI 26.4
--- NOTE | 2018-01-15 23:23 | DR.GENAD ---
HPI - PCP Primary Care Physician: JOHANNA - Complaint/Symptoms Chief Complaint Doctors Comments: 47 y/o male compalining of lt. flank pain x 2 weeks unaffected by his recent lithotripsy done within this time frame. He states that he had called the urologist's office on 01/11/18 to relate his issues but he was instead given a 3 month f/u appt. He has nausea. Chief Complaint:: PT STATES" I HAD LIPTO DONE 2.5 WEEKS AGO AND I HURT WORSE THAN I DID BEFORE" - Nurses notes reviewed Nurses Notes Review: Yes - Source History Provided: Patient - Mode of Arrival Mode of Arrival: Ambulatory - Timing Onset of Chief Complaint: 01/15/18 PMH - PMH Past Medical History: Yes Past Medical History: GERD, Hypertension, Kidney Stones, Renal Disease Past Surgical History: Yes Surgical History: Ortho Surgery, Lithotripsy Past Surgical History Comment: NECK - Family History History of Family Medical Conditions: Yes Family Medical History: Cancer, Hypertension - Social History Type of Tobacco Use: Cigarettes Does any household member use tobacco: Yes Alcohol Use: None Do you use any recreational Drugs:: No Lives With: Family Lives Where: Home - infectious screening In the last 2 months have you had wt loss of >10#?: NO Have you had fever, night sweats or hemotysis?: No Have you traveled outside the country in the last 6 months?: No Isolation: Standard ROS - Review of Systems Constitutional: No Symptoms Reported Eyes: No Symptoms Reported ENTM: No Symptoms Reported Respiratoy: No Symptoms Reported Cardiovascular: No Symptoms Reported Gastrointestinal/Abdominal: Nausea, Other (lt. flank pain) Genitourinary: No Symptoms Reported Neurological: No Symptoms Reported Musculoskeletal: No Symptoms Reported Integumentary: No Symptoms Reported Hematologic/Lymphatic: No Symptoms Reported Endocrine: No Symptoms Reported Psychiatric: No Symptoms Reported PE - Vital Signs Vitals: Temperature 98.3 F Pulse Rate 93 Respiratory Rate 18 Blood Pressure [Right Arm] 137/85 Blood Pressure 124/78 O2 Sat by Pulse Oximetry 99 - General Limitations: No Limitations General Appearance: Alert, In No Apparent Distress - Head Head Exam: Normal Inspection - Eyes Eye exam: Normal Appearance - ENT ENT Exam: Normal Exam Nose Exam: Normal Nose Exam Mouth Exam: Normal Inspection - Neck Neck Exam: Normal Inspection, Trachea Midline - Chest Chest Inspection: Normal Inspection - Respiratory Respiratory Exam: Normal Lung Sounds Bilat - Cardiovascular Cardiovascular Exam: Regular Rate, Normal Rhythm, Normal Heart Sounds, +S1, +S2 - Abdominal Exam Abdominal Exam: Normal Inspection, Normal Bowel Sounds, Soft - Extremities Extremities Exam: Normal Inspection - Back Back Exam: Normal Inspection - Neurologic Neurological Exam: Alert, Oriented X3 - Psychiatric Psychiatric Exam: Normal Affect, Normal Mood - Skin Skin Exam: Warm, Dry, Intact, Normal Color ROR - Labs Reviewed Result Diagrams: 01/15/18 23:31 Laboratory: Sodium 138 mmol/L (136-145) 01/15/18 23:31 Corrected Sodium 138 mmol/L (136-145) 01/15/18 23:31 Potassium 3.9 mmol/L (3.5-5.1) 01/15/18 23:31 Chloride 104 mmol/L (98-107) 01/15/18 23:31 Carbon Dioxide 24.8 mmol/L (21-32) 01/15/18 23:31 BUN 17 mg/dL (7-18) 01/15/18 23:31 Creatinine 1.06 mg/dL (0.70-1.30) 01/15/18 23:31 Est GFR (MDRD) Af Amer > 60 (>60) 01/15/18 23:31 Est GFR (MDRD) Non-Af > 60 (>60) 01/15/18 23:31 Glucose 112 mg/dL (65-99) H 01/15/18 23:31 Calcium 8.1 mg/dL (8.5-10.1) L 01/15/18 23:31 Specimen Type Clean catch urine 01/15/18 23:30 Urine Color Yellow (YELLOW) 01/15/18 23:30 Urine Appearance Clear (CLEAR) 01/15/18 23:30 Urine pH 5.0 (5.0 - 8.0) 01/15/18 23:30 Ur Specific [place] 1.015 (1.000-1.030) 01/15/18 23:30 Urine Protein Negative (NEGATIVE) 01/15/18 23:30 Urine Glucose (UA) Negative (NEGATIVE) 01/15/18 23:30 Urine Ketones Negative (NEGATIVE) 01/15/18 23:30 Urine Occult Blood 2+ (NEGATIVE) 01/15/18 23:30 Urine Nitrite Negative (NEGATIVE) 01/15/18 23:30 Urine Bilirubin Negative (NEGATIVE) 01/15/18 23:30 Urine Urobilinogen Normal (NORMAL) 01/15/18 23:30 Ur Leukocyte Esterase Negative (NEGATIVE) 01/15/18 23:30 Urine RBC 0-2 /HPF (NONE SEEN) 01/15/18 23:30 Urine WBC None seen /HPF (NONE SEEN) 01/15/18 23:30 Ur Squamous Epith Cells Rare /HPF (NEGATIVE) 01/15/18 23:30 Urine Bacteria Negative /HPF (NEGATIVE) 01/15/18 23:30 Ur Culture Indicated? No/not indicated 01/15/18 23:30 - Diagnosis Discharge Problem: Nephroureterolithiasis - Discharge Plan Disposition: 01 HOME, SELF-CARE Condition: Stable - Follow ups/Referrals Follow ups/Referrals: NAEL SPENCER [Primary Care Provider] - 3 days - Instructions Instructions: Kidney Stones, [id number]
[2018-01-15 23:41] LABS: BILIRUBIN,URINE NEGATIVE (NEGATIVE); BLOOD/HEMOGLOBIN,URINE 2+ (NEGATIVE); GLUCOSE, URINE NEGATIVE (NEGATIVE); KETONES,URINE NEGATIVE (NEGATIVE); LEUKOCYTE ESTERASE ,URINE NEGATIVE (NEGATIVE); NITRITES,URINE NEGATIVE (NEGATIVE); PROTEIN,URINE NEGATIVE (NEGATIVE); UROBILINOGEN,URINE NORMAL (NORMAL)
[2018-01-15 23:46] LABS: BLOOD UREA NITROGEN 17 mg/dL (7-18); CALCIUM 8.1 mg/dL (8.5-10.1); CARBON DIOXIDE 24.8 mmol/L (21-32); CHLORIDE 104 mmol/L (98-107); COR NA(FOR HYPERGLY) 138 mmol/L (136-145); CREATININE 1.06 mg/dL (0.70-1.30); SODIUM 138 mmol/L (136-145); eGFR BLACK RACES > 60 (>60); eGFR NON BLACK RACES > 60 (>60)
[2018-01-15 23:55] LABS: APPEARANCE,URINE CLEAR (CLEAR); BACTERIA,URINE NEGATIVE /HPF (NEGATIVE); COLOR,URINE YELLOW (YELLOW); RBC,URINE 0-2 /HPF (NONE SEEN); SQUAMOUS EPITHELIAL CELL,UR RARE /HPF (NEGATIVE)
[2018-01-16] MEDS ORDERED: DILAUDID INJ IM ONE (01:00)
[2018-01-16] MEDS ORDERED: DILAUDID INJ ONE (01:04)
== END 2018-01-16 01:24 | disposition home or self-care (01) ==
LOC: ER 22:28
DX: N20.1 Calculus of ureter (principal); R73.9 Hyperglycemia, unspecified
CPT/HCPCS: 36415; 80048; 81001; 96372; 99282; 99283; J1170